=== PATIENT | male | born 1980 | race Caucasian/White ===

== ENCOUNTER 2020-09-30 21:53 | Emergency (ER) | payer SELFPAY ==
[~2020-09-30] VITALS: Ht 188 cm; Wt 73.0 kg
[2020-09-30 22:21] VITALS: BP 121/81
--- NOTE | 2020-10-01 01:31 | NUR ---
NA X 1 [phone] //NA X 2 [phone] // NA X 3 [phone]
== END 2020-10-01 01:33 | disposition left against medical advice (07) ==
LOC: ED 22:15
DX: R68.89 Other general symptoms and signs (principal); Z53.21 Procedure and treatment not carried out due to patient leaving prior to being seen by health care provider

== ENCOUNTER 2020-10-01 08:16 | Emergency (ER) | payer MEDICAID ==
[~2020-10-01] VITALS: Ht 188 cm; Wt 73.1 kg
--- NOTE | 2020-10-01 09:08 | NUR ---
requested records from [facility].
[2020-10-01 09:27] LABS: BASOPHILS % (AUTO) 0 % (0-1); EOSINOPHILS % (AUTO) 2 % (1-7); LYMPHOCYTES % (AUTO) 20 % (22-44); MEAN CORPUSCULAR HEMOGLOBIN 30.3 pg (27.5-34.5); MEAN CORPUSCULAR HGB CONC 33.2 g/dL (33.2-36.2); MEAN PLATELET VOLUME 6.2 fL (7.4-10.4); MONOCYTES % (AUTO) 9 % (2-9); NEUTROPHILS % (AUTO) 69 % (42-75); PLATELET COUNT 975 x10^3/uL (130-400); RED BLOOD COUNT 3.18 x10^6/uL (4.38-5.82); RED CELL DISTRIBUTION WIDTH 15.3 % (9.4-14.8)
[2020-10-01 09:38] LABS: ALANINE AMINOTRANSFERASE 100 U/L (12-78); ALBUMIN 2.7 g/dL (3.4-5.0); ANION GAP 7 mmol/L (5-15); CALCIUM 8.1 mg/dL (8.5-10.1); CHLORIDE 108 mmol/L (98-107); CREATININE 0.75 mg/dL (0.7-1.3)
[2020-10-01 09:40] LABS: ALKALINE PHOSPHATASE 340 U/L (45-117); BILIRUBIN,TOTAL 0.4 mg/dL (0.2-1.0); TOTAL PROTEIN 6.8 g/dL (6.4-8.2)
[2020-10-01] MEDS ORDERED: OMNIPAQUE 350 MG/ML, 100ML BOTTLE ONE (10:42)
--- NOTE | 2020-10-01 11:09 | NUR ---
2nd request for medical records from [facility].
--- NOTE | 2020-10-01 11:28 | NUR ---
received records from [facility].
[2020-10-01 11:56] VITALS: BP 130/87
== END 2020-10-01 12:03 | disposition home or self-care (01) ==
LOC: ED 11:36
DX: G89.29 Other chronic pain (principal); R10.9 Unspecified abdominal pain
CPT/HCPCS: 36415; 74177; 80053; 83690; 85025; 99285; Q9967